=== PATIENT | male | born 2000 | race African-American/Black ===

== ENCOUNTER 2022-12-24 19:39 | Emergency (ER) | payer SELFPAY ==
[~2022-12-24] VITALS: Ht 180.3 cm; Wt 70.3 kg
--- NOTE | 2022-12-24 20:05 | NUR ---
BIBS FOR C/O L SIDED CP 8 RADIATING TO L POSTERIOR SHOULDER SINCE LAST NIGHT. PATIENT IS AAOX4. ABLE TO MAKE NEEDS KNOWN. PLACED COMFORTABLY IN BED.VITALS CHECKED.
--- NOTE | 2022-12-24 20:13 | NUR ---
EKG STRIP HAS ALOT OF ARTIFACTS. DR TODD DECIDED TO TAKE AGAIN LATER.
--- NOTE | 2022-12-24 20:13 | NUR ---
EKG DONE AT BEDSIDE.
--- NOTE | 2022-12-24 20:13 | NUR ---
DR TODD AT BEDSIDE
[2022-12-24] MEDS ORDERED: LORAZEPAM 1 MG TABLET PO ONE (20:30)
[2022-12-24] MEDS ORDERED: KETOROLAC TROMETHAMINE INJ 30 MG/ML VIAL IM ONE (20:30)
[2022-12-24] MEDS ORDERED: KETOROLAC TROMETHAMINE INJ 30 MG/ML VIAL ONE (20:45)
[2022-12-24] MEDS ORDERED: LORAZEPAM 1 MG TABLET ONE (20:45)
--- NOTE | 2022-12-24 21:40 | NUR ---
EKG REPEATED. COPY PROVIDED TO DR TODD
[2022-12-24] MEDS ORDERED: HYDR25CA PO (21:42)
[2022-12-24] MEDS ORDERED: IBUP-1955 PO (21:42)
--- NOTE | 2022-12-24 21:52 | NUR ---
Patient discharged to home in stable condition. Written and verbal after care instructions given. Patient verbalizes understanding of instruction.
[2022-12-24 21:54] VITALS: BP 129/98
== END 2022-12-24 21:55 | disposition home or self-care (01) ==
LOC: ER 19:45
DX: R07.9 Chest pain, unspecified (principal); F43.0 Acute stress reaction; Z60.2 Problems related to living alone; Z79.899 Other long term (current) drug therapy
CPT/HCPCS: 99283; 71045; 96372; 93005 ×2; J1885